=== PATIENT | female | born 1965 | race Caucasian/White ===

== ENCOUNTER 2016-12-14 17:00 | Inpatient (IN) | payer SELFPAY ==
[~2016-12-14] VITALS: Ht 170.2 cm; Wt 80.0 kg
[~2016-12-14 17:00] MED LIST: ALPR0.5T99 PO; HYDR10TA16 PO; MECL25CH OR; NORMOSOL R INJ 1,000 ML IV ONE; ONDANSETRON HCL 4 MG/2 ML VIAL IV PUSH ONE; PHENYLEPH/NS 1000 MCG/10 ML SYR IV ONE; PROPOFOL 200 MG/20 ML AMP IV ONE; SYNT75TA PO
[2016-12-14 17:02] VITALS: BP 109/65; PULSE 103; RESP 15; TEMP 98.7; O2SAT 98
--- NOTE | 2016-12-14 17:10 | PD ---
Physical Exam Date Seen by Provider: Dec 14, 2016 Time Seen by Provider: 17:08 Narrative 51 YOWF C/O LOW ABD PAIN FOR 1 MONTH WORSE 1 WEEK. 10/10 PAIN. FELT HOT. NAUSEA NO VOMITING OR DIARRHEA VS REVIEWED WAITING FOR BED PLACEMENT Data Data Last Documented VS Vital Signs Date Time Temp Pulse Resp B/P Pulse Ox O2 Delivery O2 Flow Rate FiO2 12/14/16 17:02 98.7 103 15 109/65 98 MDM Supervised Visit with BALJIT: Jeramy Daugherty Dec 14, 2016 17:10
[2016-12-14] MEDS ORDERED: SODIUM CHLORIDE 0.9% FLUSH 10 ML FLUSH IV FLUSH PRN ×2 (20:00→23:15)
[2016-12-14] MEDS ORDERED: MORPHINE SULFATE 4 MG/ML INJ IV PUSH ONE (20:00)
[2016-12-14] MEDS ORDERED: ONDANSETRON HCL 4 MG/2 ML VIAL IVP ONE (20:00)
--- NOTE | 2016-12-14 20:04 | PD ---
HPI Chief Complaint: Abdominal Pain Time Seen by Provider: 19:46 Travel History International Travel<30 days: No Contact w/Intl Traveler<30days: No Traveled to known affect area: No History of Present Illness HPI 51-year-old female here for evaluation of abdominal pain. Patient reports worsening abdominal pain over the last 2 days. Pain is diffuse, described as sharp/knifelike. She states it is difficult to breathe because of her pain. No chest pain. History of appendectomy in 2007. No other abdominal surgeries. No urinary symptoms. She feels nauseous but has not vomited. PFSH Past Medical History Arthritis: No Blood Disorders: No Anxiety: Yes Depression: No Cancer: Yes (THYROID) Cardiovascular Problems: No Chemotherapy: No Diabetes: No Diminished Hearing: No Endocrine: Yes Genitourinary: No Hepatitis: No Hiatal Hernia: No Immune Disorder: No Musculoskeletal: Yes (NECK AND BACK PAIN - UNDER PAIN MANAGEMENT) Neurologic: No Psychiatric: Yes Reproductive: No Respiratory: No Radiation Therapy: No Thyroid Disease: Yes Tetanus Vaccination: < 5 Years Influenza Vaccination: No ?: Unknown : 3 Para: 2 Miscarriage: 0 : 1 Ovarian Cysts: Yes (CANT RECALL WHICH OVARY) Tubal Ligation: Yes Past Surgical History Abdominal Surgery: Yes (APPENDECTOMY) AICD: No Appendectomy: Yes (TODAY) Arteriovenous Shunt: No Body Medical Devices: NONE Cardiac Surgery: No Ear Surgery: No Endocrine Surgery: Yes (THYROIDECTOMY) Eye Surgery: No Genitourinary Surgery: No Gynecologic Surgery: Yes (TUBAL LIGATION) Insulin Pump: No Joint Replacement: No Oral Surgery: No Pacemaker: No Thoracic Surgery: No Other Surgery: Yes Social History Alcohol Use: No Tobacco Use: Yes (1/2 PPD) Substance Use: No Allergies-Medications (Allergen,Severity, Reaction): Coded Allergies: No Known Allergies (Verified , 12/14/16) Reported Meds & Prescriptions Reported Meds & Active Scripts Active Reported Meclizine Hcl (Meclizine HCl) 25 Mg Chw 25 Mg OR HSPRN Synthroid (Levothyroxine Sodium) 75 Mcg Tab 75 Mcg PO DAILY Lortab 10/500 (Acetaminophen/Hydrocodone Bitart) 10 Mg/500 Mg Tab 1 Tab PO DIRECTED FOR PAIN Xanax (Alprazolam) 0.5 Mg Tab 0.5 Mg PO PRN Review of Systems Except as stated in HPI: all other systems reviewed are Neg Physical Exam Narrative GENERAL: Well-developed, well-nourished, mild distress secondary to pain. SKIN: Focused skin assessment warm/dry. HEAD: Atraumatic. Normocephalic. EYES: Pupils equal and round. No scleral icterus. No injection or drainage. ENT: Mucous membranes pink and moist. CARDIOVASCULAR: Regular rate and rhythm. No murmur appreciated. RESPIRATORY: No accessory muscle use. Clear to auscultation. Breath sounds equal bilaterally. GASTROINTESTINAL: Abdomen soft, nondistended. Moderate diffuse tenderness without peritoneal signs. Normal bowel sounds. MUSCULOSKELETAL: No obvious deformities. No clubbing. No cyanosis. No edema. NEUROLOGICAL: Awake and alert. No obvious cranial nerve deficits. Motor grossly within normal limits. Normal speech. PSYCHIATRIC: Appropriate mood and affect; insight and judgment normal. Data Data Last Documented VS Vital Signs Date Time Temp Pulse Resp B/P Pulse Ox O2 Delivery O2 Flow Rate FiO2 12/14/16 21:30 98.3 77 18 126/65 100 Room Air Orders Beta Hcg (Quant/Titer) (12/14/16 19:58) Complete Blood Count With Diff (12/14/16 19:58) Comprehensive Metabolic Panel (12/14/16 19:58) Lipase (12/14/16 19:58) Prothrombin Time / Inr (Pt) (12/14/16 19:58) Act Partial Throm Time (Ptt) (12/14/16 19:58) Urinalysis - C+S If Indicated (12/14/16 19:58) Iv Access Insert/Monitor (12/14/16 19:58) Ecg Monitoring (12/14/16 19:58) Oximetry (12/14/16 19:58) Morphine Inj (Morphine Inj) (12/14/16 20:00) Ondansetron Inj (Zofran Inj) (12/14/16 20:00) Sodium Chlor 0.9% 1000 Ml Inj (Ns 1000 M (12/14/16 19:58) Sodium Chloride 0.9% Flush (Ns Flush) (12/14/16 20:00) Electrocardiogram (12/14/16 19:58) Ckmb (Isoenzyme) Profile (12/14/16 19:58) Troponin I (12/14/16 19:58) Ct Abd/Pel W/O Iv Contrast (12/14/16 ) Piperacil-Tazo 4.5 Gm Premix (Zosyn 4.5 (12/14/16 21:45) Hydromorphone Pf Inj (Dilaudid Pf Inj) (12/14/16 22:00) Blood Culture (12/14/16 21:52) Lactic Acid Sepsis Protocol (12/14/16 21:52) Sodium Chlor 0.9% 1000 Ml Inj (Ns 1000 M (12/14/16 22:00) Admit Order (Ed Use Only) (12/14/16 21:56) Labs Laboratory Tests Test 12/14/16 12/14/16 18:51 20:04 Urine Color YELLOW Urine Turbidity HAZY Urine pH 5.5 Urine Specific [place] 1.017 Urine Protein TRACE mg/dL Urine Glucose (UA) NEG mg/dL Urine Ketones NEG mg/dL Urine Occult Blood NEG Urine Nitrite NEG Urine Bilirubin NEG Urine Urobilinogen LESS THAN 2.0 MG/DL Urine Leukocyte Esterase LARGE Urine RBC 4 /hpf Urine WBC 4 /hpf Urine Squamous Epithelial 6 /hpf Cells Urine Bacteria MOD /hpf Urine Hyaline Casts 2 /lpf Microscopic Urinalysis Comment CULTURE INDICATED White Blood Count 21.4 TH/MM3 Red Blood Count 3.78 MIL/MM3 Hemoglobin 9.0 GM/DL Hematocrit 29.6 % Mean Corpuscular Volume 78.2 FL Mean Corpuscular Hemoglobin 23.8 PG Mean Corpuscular Hemoglobin 30.5 % Concent Red Cell Distribution Width 18.8 % Platelet Count 392 TH/MM3 Mean Platelet Volume 9.6 FL Neutrophils (%) (Auto) 80.0 % Lymphocytes (%) (Auto) 11.0 % Monocytes (%) (Auto) 6.9 % Eosinophils (%) (Auto) 1.6 % Basophils (%) (Auto) 0.5 % Neutrophils # (Auto) 17.1 TH/MM3 Lymphocytes # (Auto) 2.4 TH/MM3 Monocytes # (Auto) 1.5 TH/MM3 Eosinophils # (Auto) 0.3 TH/MM3 Basophils # (Auto) 0.1 TH/MM3 CBC Comment DIFF FINAL Differential Comment Prothrombin Time 11.3 SEC Prothromb Time International 1.0 RATIO Ratio Activated Partial 31.3 SEC Thromboplast Time Sodium Level 135 MEQ/L Potassium Level 3.2 MEQ/L Chloride Level 98 MEQ/L Carbon Dioxide Level 29.5 MEQ/L Anion Gap 8 MEQ/L Blood Urea Nitrogen 23 MG/DL Creatinine 1.87 MG/DL Estimat Glomerular Filtration 29 ML/MIN Rate Random Glucose 88 MG/DL Calcium Level 11.0 MG/DL Total Bilirubin 0.5 MG/DL Aspartate Amino Transf 7 U/L (AST/SGOT) Alanine Aminotransferase 8 U/L (ALT/SGPT) Alkaline Phosphatase 87 U/L Total Creatine Kinase 25 U/L Troponin I LESS THAN 0.02 NG/ML Total Protein 7.0 GM/DL Albumin 3.0 GM/DL Lipase 40 U/L Human Chorionic Gonadotropin, LESS THAN 1 Quant MIU/ML MDM Medical Decision Making Medical Screen Exam Complete: Yes Emergency Medical Condition: Yes Medical Record Reviewed: Yes Differential Diagnosis Acute intra-abdominal infectious process, pancreatitis, diverticulitis, perf bowel, bowel obstruction, ACS, IBS Narrative Course Vital signs reviewed. CBC shows WBC 21.4, hemoglobin 9, hematocrit 29.6, platelets 392, neutrophils 80 %. CMP is remarkable for BUN 23, creatinine 1.87, GFR 29. Cardiac enzymes are negative. Lipase is 40. Beta hCG is negative. CT abdomen pelvis: CONCLUSION: 1. Pneumoperitoneum. This is associated abnormal mural thickening of the distal left colon and proximal sigmoid colon as well as a partial obstruction. Differential diagnosis includes a ruptured diverticulitis or colonic perforation from focal colitis or neoplasm. 2. Small pericardial effusion. Trace free fluid in the abdomen. Case discussed with on-call general surgeon Dr. Bartholomew. Patient will be started on Zosyn. He will present to the emergency department to evaluate the patient. The patient will be admitted to his service. Patient made aware of all findings and plan. Critical Care Narrative Aggregate critical care time was 35 minutes. Time to perform other separately billable procedures was not included in the critical care time. My time did not include minutes spent treating any other patients simultaneously or on activities that did not directly contribute to the patient's treatment. The services I provided to this patient were to treat and/or prevent clinically significant deterioration that could result in: Septic shock, , permanent disability, worsening clinical condition I provided critical care services requiring my management, as noted below: Chart data review, documentation time, medication orders and management, vital sign assessments/reviewing monitor data, ordering and reviewing lab tests, ordering and interpreting/reviewing x-rays and diagnostic studies, care of the patient and discussion of the patient with the admitting physicians. Diagnosis Primary Impression: Pneumoperitoneum Additional Impression: Sepsis Qualified Code: A41.9 - Sepsis, due to unspecified organism Admitting Information Admitting Physician Requests: Admit Anthony Zelaya MD Dec 14, 2016 20:04
[2016-12-14 20:14] VITALS: O2SAT 100
[2016-12-14] MEDS: SODIUM CHLOR 0.9% 1000 ML INJ 1,000 ML IV SCH ×2 (20:14→22:13)
[2016-12-14 20:15] LABS: AUTOMATED NEUTROPHIL # 17.1 TH/MM3 (1.8-7.7); BASOPHIL # 0.1 TH/MM3 (0-0.2); BASOPHIL % 0.5 % (0.0-2.0); EOSINOPHIL # 0.3 TH/MM3 (0-0.4); EOSINOPHIL % 1.6 % (0.0-4.0); HEMATOCRIT 29.6 % (35.0-46.0); HEMO FLAGS DIFF FINAL; LYMPHOCYTE # 2.4 TH/MM3 (1.0-4.8); MEAN CELL VOLUME 78.2 FL (80.0-100.0); MEAN CORPUSCULAR HEMOGLOBIN 23.8 PG (27.0-34.0); MEAN CORPUSCULAR HGB CONC 30.5 % (32.0-36.0); MONO % 6.9 % (0.0-8.0); PLATELET COUNT 392 TH/MM3 (150-450); RED BLOOD COUNT 3.78 MIL/MM3 (4.00-5.30); RED CELL DISTRIBUTION WIDTH 18.8 % (11.6-17.2); WHITE BLOOD COUNT 21.4 TH/MM3 (4.0-11.0)
[2016-12-14 20:29] LABS: APTT (PATIENT) 31.3 SEC (24.3-30.1); PROTHROMBIN TIME - PATIENT 11.3 SEC (9.8-11.6)
[2016-12-14 20:34] LABS: ANION GAP 8 MEQ/L (5-15); BICARBONATE 29.5 MEQ/L (21.0-32.0); BLOOD UREA NITROGEN 23 MG/DL (7-18); CHLORIDE 98 MEQ/L (98-107); GLOMERULAR FILTRATION RATE 29 ML/MIN (>89); POTASSIUM 3.2 MEQ/L (3.5-5.1); SODIUM (NA) 135 MEQ/L (136-145)
[2016-12-14 20:35] LABS: ALT (GPT) 8 U/L (10-53); AST (GOT) 7 U/L (15-37)
[2016-12-14 20:39] LABS: ALKALINE PHOSPHATASE 87 U/L (45-117); BETA HCG QUANT LESS THAN 1 MIU/ML (0-5); TOTAL BILIRUBIN ADULT 0.5 MG/DL (0.2-1.0)
[2016-12-14 20:40] LABS: CREATINE KINASE 25 U/L (26-192)
[2016-12-14 21:30] VITALS: BP 126/65; PULSE 77; RESP 18; TEMP 98.3; O2SAT 100
[2016-12-14] MEDS ORDERED: PIPERACIL-TAZO 4.5 GM PREMIX 100 ML IV ONE (21:45)
--- NOTE | 2016-12-14 21:48 | RADRPT ---
EXAM DATE/TIME: 12/14/2016 21:21 [facility] COMPARISON: No previous studies available for comparison. INDICATIONS : Adbominal pain for one month. ORAL CONTRAST: No oral contrast ingested. RADIATION DOSE: 12.88 CTDIvol (mGy) MEDICAL HISTORY : None SURGICAL HISTORY : Appendectomy. Tubal ligation. ENCOUNTER: Initial ACUITY: 1 month PAIN SCALE: 10/10 LOCATION: Bilateral lower quadrant TECHNIQUE: Volumetric scanning of the abdomen and pelvis was performed. Using automated exposure control and ad justment of the mA and/or kV according to patient size, radiation dose was kept as low as reasonably achievable to obtain optimal diagnostic quality images. DICOM format image data is available electro nically for review and comparison. FINDINGS: There is dependent atelectasis in the lungs. Small pericardial effusion. There is free intraperitoneal air within the abdomen and pelvis. There is abnormal mural thickening o f a segment of distal left colon extending into the proximal sigmoid colon. There is a probable parti al obstruction at this location with a mildly dilated colon proximal to this with some mild constipat ion. This could represent a ruptured diverticulitis or colitis. Cannot exclude a colonic mass. No focal lesion in the liver, spleen, adrenals, kidneys or pancreas. Trace free fluid present. CONCLUSION: 1. Pneumoperitoneum. This is associated abnormal mural thickening of the distal left colon and proxim al sigmoid colon as well as a partial obstruction. Differential diagnosis includes a ruptured diverti culitis or colonic perforation from focal colitis or neoplasm. 2. Small pericardial effusion. Trace free fluid in the abdomen. Jeramy Steel MD on December 14, 2016 at 21:42 Board Certified Radiologist. This report was verified electronically.
[2016-12-14] MEDS ORDERED: SODIUM CHLOR 0.9% 1000 ML INJ 1,000 ML IV ONE (22:00)
[2016-12-14] MEDS ORDERED: HYDROmorphone HCL PF 1 MG/ML VIAL IV PUSH ONE (22:00)
[2016-12-14 22:08] VITALS: BP 113/65; PULSE 80; RESP 18; O2SAT 100
[2016-12-14 22:15] LABS: BACTERIA, URINE MOD /hpf; BLOOD, URINE NEG (NEG); COMMENT (UR) CULTURE INDICATED; CULTURE IF INDICATED CULTURE INDICATED; GLUCOSE,URINE NEG (NEG); HYALINE CAST, URINE 2 /lpf (RARE); KETONE, URINE NEG (NEG); NITRITE,URINE NEG (NEG); PH, URINE 5.5 (5.0-8.5); SQUAMOUS EPITHELIAL CELL URINE 6 /hpf (0-5); URINE COLOR YELLOW (YELLW/STRAW)
[2016-12-14] MEDS ORDERED: SODIUM CHLOR 0.9% 1000 ML INJ 1,000 ML IV SCH (23:08)
[2016-12-14 23:16] VITALS: BP 96/54; PULSE 79; RESP 18; TEMP 98.1; O2SAT 100
[2016-12-14] MEDS ORDERED: GELFOAM SIZE 100 ONE (23:17)
[2016-12-14] MEDS ORDERED: ceFAZolin INJ 1,000 MG VIAL ONE (23:17)
[2016-12-14] MEDS ORDERED: BUPIVACAINE/EPINEPHRINE 0.5% 50 ML VIAL ONE (23:19)
[2016-12-14 23:20] VITALS: BP 101/57
[2016-12-14] MEDS ORDERED: fentaNYL CITRATE 250 MCG/5 ML AMP ONE (23:25)
--- NOTE | 2016-12-14 23:43 | MH ---
cc: JOLANTA BARTHOLOMEW DATE OF ADMISSION 12/14/2016 REASON FOR ADMISSION Free air sepsis. HISTORY This is a 51-year-old female who has had a few days' history of a severe abdominal pain. She came in the emergency room, CT scan was done showing massive free air with an elevated white count of 21,000. Surgery was called for evaluation and admission and treatment. She states she has chronic constipation and chronic back pain and chronic abdominal pain. She has been taking a lot ibuprofen and the pain just gets progressively worse. It was in the midepigastric region under her ribs, mainly on the right side and then it progressed to her entire abdomen. PAST MEDICAL HISTORY Significant for thyroid cancer requiring a thyroidectomy. She has had chronic abdominal pain and constipation related to her medications that she takes for her chronic back pain. She has had an appendectomy about 9 years ago. Had some skin cancers removed from her face and her arm. No neurologic or cardiovascular, respiratory issues. GI complaints as above. She had a tubal ligation and one time had ovarian cyst. Last menstrual period was last . PHYSICAL EXAMINATION GENERAL: She is holding her abdomen. She has a difficult time moving around. NECK: She has a surgical scar on her neck from a thyroidectomy. The neck is otherwise supple. CHEST: Clear. HEART: Regular rate, slightly tachycardiac. ABDOMEN: Slightly distended, exquisitely tender throughout. EXTREMITIES: She was up in the stretcher, she had to go urinate. NEUROLOGIC: She is alert, oriented but obviously is uncomfortable. LABORATORY DATA She had a white count of 21,000, H&H of 9 and 29. Her platelet count of 329. Chemistry shows potassium 3.2, creatinine 1.8, calcium 11, albumin of 3. Beta hCG is negative. Coags a PTT is 31. Urinalysis shows some leukocyte esterase and some blood. IMAGING STUDIES CT scan read by the radiologist, I reviewed it. She has got massive free air. There is some thickening in the colon. She looks like she has a fair amount of stool in her colon. ASSESSMENT A 51-year-old female with free air. She is taking a fair amount ibuprofen for her chronic back pain and just generalized pain that she has. However, she has these changes on the CT scan, possibly diverticulosis, diverticulitis. PLAN Plan at this time, she will need to go right to the operating room. Explained to her we will determine if this is free air from a perforated ulcer. Her history certainly favors that with the pain starting in the mid epigastric region and her ibuprofen use but the radiologic findings suggest possible colon source. Will proceed to the operating room and determine the source. If it is an ulcer of course we will just primarily repair that which was explained to the patient. If it is her colon she will require a colostomy which she appears to understand. Jolanta Bartholomew MD JDB/EO /11:16 PM /11:25 PM
[2016-12-15] VITALS (12 sets, daily range): BP systolic 96–112; BP diastolic 52–59; PULSE 82–99; RESP 11–16; TEMP 97.9–98.4; O2SAT 95–99
[2016-12-15] MEDS ORDERED: FLUCONAZOLE 400 MG PREMIX BAG 200 ML ONE (00:29)
[2016-12-15 00:57] LABS: BLOOD GAS BASE EXCESS -0.2 mmol/L (-2-2); BLOOD GAS CARBOXYHEMOGLOBIN 2.5 % (0-4); BLOOD GAS HCO3 23 mmol/L (22-26); BLOOD GAS METHEMOGLOBIN 1.5 % (0-2); BLOOD GAS O2 HGB SATURATION 95 % (90-100); BLOOD GAS OXYGEN CONTENT 15.1 Vol % (12.0-20.0); BLOOD GAS PCO2 34 mmHg (38-42); BLOOD GAS PO2 209 mmHg (61-120); CRITICAL VALUE NO; TEMP CORR TO 98.6
[2016-12-15 00:58] LABS: DRAW SITE OR GAS; FIO2 60 %; OXYGEN DEVICE OR GAS; STAT YES
[2016-12-15] MEDS ORDERED: DO NOT ADM ANY ANTICOAGULANT DRUGS PRN (01:00)
[2016-12-15] MEDS: LACTATED RINGER'S 1000 ML INJ 1,000 ML IV SCH ×3 (01:25→20:36)
[2016-12-15] MEDS ORDERED: ENOXAPARIN SODIUM 30 MG/0.3 ML SYRINGE SQ SCH (01:30)
[2016-12-15] MEDS ORDERED: Post-op Orders (for Pharmacy) MISC XX ONE (01:30)
[2016-12-15] MEDS ORDERED: NALOXONE HCL 0.4 MG/ML AMP IV PRN ×2 (01:30)
[2016-12-15] MEDS: ACETAMINOPHEN 1000 MG/100 ML VIAL IV SCH ×4 (02:00→20:19)
[2016-12-15] MEDS: LEVOFLOXACIN 750 MG PREMIX INJ 150 ML IV SCH (02:00)
[2016-12-15] MEDS: HYDROmorphone HCL PCA 6 MG/30 ML IV SCH ×2 (02:47→13:46)
[2016-12-15] MEDS: metroNIDAZOLE 500 MG INJ 100 ML IV SCH ×3 (04:57→17:35)
[2016-12-15] MEDS: PCA - TOTAL MG DILAUDID DELIVERED PER SHIFT OTHER SCH ×3 (06:00→22:00)
--- NOTE | 2016-12-15 08:11 | HHI.PR ---
Subjective Subjective Notes DAILY PROGRESS NOTE FOR SURGICAL ATTENDING, DR. JOLANTA BARTHOLOMEW Patient feels comfortable She says her throat hurts more than her abdomen after major surgery Objective Vitals/I&O Vital Signs Date Time Temp Pulse Resp B/P Pulse Ox O2 Delivery O2 Flow Rate FiO2 12/15/16 06:00 84 12/15/16 03:00 Nasal Cannula 2.00 12/15/16 02:47 18 12/15/16 02:38 98.8 101/62 96 121/68 Labs Laboratory Tests Test 12/14/16 12/14/16 12/14/16 12/14/16 18:51 20:04 22:15 23:07 Urine Color YELLOW Urine Turbidity HAZY Urine pH 5.5 Urine Specific [place] 1.017 Urine Protein TRACE Urine Glucose (UA) NEG Urine Ketones NEG Urine Occult Blood NEG Urine Nitrite NEG Urine Bilirubin NEG Urine Urobilinogen LESS THAN 2.0 Urine Leukocyte Esterase LARGE Urine RBC 4 Urine WBC 4 Urine Squamous Epithelial 6 Cells Urine Bacteria MOD Urine Hyaline Casts 2 Microscopic Urinalysis Comment CULTURE INDICATED White Blood Count 21.4 Red Blood Count 3.78 Hemoglobin 9.0 Hematocrit 29.6 Mean Corpuscular Volume 78.2 Mean Corpuscular Hemoglobin 23.8 Mean Corpuscular Hemoglobin 30.5 Concent Red Cell Distribution Width 18.8 Platelet Count 392 Mean Platelet Volume 9.6 Neutrophils (%) (Auto) 80.0 Lymphocytes (%) (Auto) 11.0 Monocytes (%) (Auto) 6.9 Eosinophils (%) (Auto) 1.6 Basophils (%) (Auto) 0.5 Neutrophils # (Auto) 17.1 Lymphocytes # (Auto) 2.4 Monocytes # (Auto) 1.5 Eosinophils # (Auto) 0.3 Basophils # (Auto) 0.1 CBC Comment DIFF FINAL Differential Comment Prothrombin Time 11.3 Prothromb Time International 1.0 Ratio Activated Partial 31.3 Thromboplast Time Sodium Level 135 Potassium Level 3.2 Chloride Level 98 Carbon Dioxide Level 29.5 Anion Gap 8 Blood Urea Nitrogen 23 Creatinine 1.87 Estimat Glomerular Filtration 29 Rate Random Glucose 88 Calcium Level 11.0 Total Bilirubin 0.5 Aspartate Amino Transf 7 (AST/SGOT) Alanine Aminotransferase 8 (ALT/SGPT) Alkaline Phosphatase 87 Total Creatine Kinase 25 Troponin I LESS THAN 0.02 Total Protein 7.0 Albumin 3.0 Lipase 40 Human Chorionic Gonadotropin, LESS THAN 1 Quant Lactic Acid Level 0.8 Blood Type O POSITIVE Antibody Screen NEGATIVE Blood Bank Comment Test 12/15/16 12/15/16 00:38 04:03 Blood Gas Puncture Site OR GAS Blood Gas Patient Temperature 98.6 Blood Gas HCO3 23 Blood Gas Base Excess -0.2 Blood Gas Oxygen Saturation 95 Arterial Blood pH 7.45 Arterial Blood Partial 34 Pressure CO2 Arterial Blood Partial 209 Pressure O2 Arterial Blood Oxygen Content 15.1 Arterial Blood 2.5 Carboxyhemoglobin Arterial Blood Methemoglobin 1.5 Blood Gas Hemoglobin 11.0 Oxygen Delivery Device OR GAS Blood Gas Inspired Oxygen 60 Nasal Screen MRSA (PCR) MRSA NOT DETECTED Date/Time Procedure Status Source Growth 12/14/16 22:15 Aerobic Blood Culture Received Blood Peripheral Pending 12/14/16 22:15 Anaerobic Blood Culture Received Blood Peripheral Pending 12/14/16 18:51 Urine Culture Received Urine Clean Catch Pending Radiology Last Impressions Abdomen/Pelvis CT 12/14/16 0000 Signed Impressions: Service Date/Time: November 21:21 - CONCLUSION: 1. Pneumoperitoneum. This is associated abnormal mural thickening of the distal left colon and proximal sigmoid colon as well as a partial obstruction. Differential diagnosis includes a ruptured diverticulitis or colonic perforation from focal colitis or neoplasm. 2. Small pericardial effusion. Trace free fluid in the abdomen. Jolanta Steel MD Cardiovascular: Regular Lungs: Clear Abdomen: Post-op tenderness Extremities: SCD's on Narrative Exam Ostomy pink perfused Dressing dry Wound Wound : Wound Location: Abdomen Appearance: Clean & Dry Dressing: Dry A/P Problem List: (1) Acute abdomen (2) Pneumoperitoneum (3) Sepsis (4) Dehydration (5) Hypercalcemia (6) Chronic constipation (7) History of chronic constipation (8) Chronic back pain greater than 3 months duration (9) Hypokalemia (10) Status post colon resection (11) Status post [place] procedure Assessment and Plan 51-year-old female who has chronic constipation secondary to narcotic use for chronic back pain developed a sizable Sterkel ulcer. Underwent a distal transverse splenic flexure descending colon resection with colostomy and Grimaldo's Doing fairly well complaining of sore throat more than abdominal discomfort this time Today we'll try to mobilize Okay for some by mouth Adjust pain medication Continuing IV antibiotics Follow-up hypercalcemia and hypokalemia Blood work still pending Attending Statement NOTE FOR SURGICAL ATTENDING, DR. JOLANTA BARTHOLOMEW I attest that I had a [id number] encounter with the patient on the same day, and personally performed and documented my assessment and findings in the medical record. The following services were provided during this hospital visit: Chart data review, vital sign assessments/reviewing monitor data Review of consultations notes if present. Medication orders/review and/or management Ordering and/or reviewing lab tests Ordering and/or interpreting/reviewing x-rays and/or diagnostic studies Care of the patient and discussion of the patient with the care team Documentation time To help prompt me to consider important information that might be impacting today's encounter and assessment, information from prior notes written by myself or my colleagues may have been "brought forward/copy and pasted" into today's note. Problem Qualifiers (1) Sepsis: Qualified Code: A41.9 - Sepsis, due to unspecified organism Jolanta Bartholomew MD Dec 15, 2016 08:11
[2016-12-15] MEDS: PANTOPRAZOLE SODIUM 40 MG VIAL IV SCH (09:00)
[2016-12-15] MEDS: SODIUM CHLORIDE 0.9% FLUSH 10 ML FLUSH IV FLUSH SCH ×2 (09:00→20:20)
[2016-12-15] MEDS ORDERED: HYDR-3583 PO (09:46)
[2016-12-15] MEDS ORDERED: ALPR.5 PO (09:46)
[2016-12-15] MEDS ORDERED: LEVO.075 PO (09:46)
[2016-12-15] MEDS ORDERED: MECL1CHW PO (09:46)
[2016-12-15] MEDS: BENZOCAINE 6 MG/MENTHOL 10 MG LOZENGE BUCCAL PRN ×2 (09:53→20:20)
[2016-12-15] MEDS: ALPRAZolam 0.5 MG TAB PO SCH ×5 (10:54→23:05)
[2016-12-15] MEDS ORDERED: LEVOTHYROXINE SODIUM 75 MCG TAB PO SCH (11:00)
[2016-12-15] MEDS: LEVOTHYROXINE SODIUM 75 MCG TAB PO SCH (11:52)
[2016-12-15] MEDS ORDERED: ALPRAZolam 0.5 MG TAB PO SCH (12:00)
--- NOTE | 2016-12-15 12:43 | MP ---
cc: JOLANTA BARTHOLOMEW M.D. DATE OF SURGERY 12/15/2016 PREOPERATIVE DIAGNOSIS Free air. POSTOPERATIVE DIAGNOSIS Perforated splenic flexure from a stercoral ulcer. PROCEDURE Exploratory laparotomy with resection of distal transverse colon, splenic flexure and descending colon. colonic on-table lavage colostomy formation Gal[place] procedure ANESTHESIA General SURGEON Dr. Bartholomew INDICATIONS This is a 51-year-old female who has had chronic constipation for sometime. She takes narcotics for her back pain. She was taking a lot of ibuprofen and having abdominal pain. She came in to the emergency room, was found to have free air, I was not sure if there was an ulcer or diverticulitis. Intraoperatively it was found that she had a fairly packed colon with stool with a stercoral ulcer at the splenic flexure with a defect approximately 3 cm in the colon. There is minimal spillage. PROCEDURE The patient taken to the operating room, placed in the supine position. Just after anesthesia, her abdomen was prepped with Betadine. We first made an incision just above to the right of the umbilicus. We enter the abdomen. Some air was noted. I explored the abdomen. No duodenal ulcer or gastric ulcer. Some purulent material and a fecal smell can be seen in the left colic gutter. The white line of Toldt was taken down. It is noted that her transverse colon, splenic flexure and most of her descending colon was packed full a large stool balls. The one at the splenic flexure has eroded through the wall of the colon consistent with a Stercoral ulcer. We take a white line of Toldt down, take the splenic flexure down and then get to just to the left of the middle colic vessels. The GI stapling was then fired. We got down to the distal descending colon and transected this. The mesentery was then taken down with a harmonic scalpel and the specimen is labeled with a stitch at the proximal edge for pathological evaluation. We then irrigate copiously. We re-explored the abdomen and no gross abnormality is seen. The small bowel is all normal-appearing. Some fibrous exudate is removed. After irrigating, we then opened up the proximal staple line and then milk out very firm stool balls from the distal ascending colon to the transverse colon into a large bucket and this is passed off the field to decompress the colon of the majority of the impacted stool. With this done, we then stapled the edge and amputated approximately two more centimeters of colon. We then irrigate copiously. The skin edges were cleaned up. We then bring out an ostomy in the somewhat mid quadrant area, a little bit higher than normal to accommodate where the transverse colon lays nicely. A skin incision is made and a defect is made the fascia and the rectus muscle to accommodate the distended colon. We then close the midline fascia with #1 PDS looped. After this was done, we then irrigate the subcutaneous tissues and closed the skin with a skin stapling device. It is noted that we did put two silk sutures on the distal staple line for identification in the future. The ostomy was then matured with 3-0 Vicryl suture to the skin and fascia. Sterile bandage is applied. Ostomy appliance applied. The patient had no immediate postop complications. MD FABIANA Aguayo/JEFFREY /1:19 AM /12:29 PM [facility]
--- NOTE | 2016-12-15 13:06 | PD.WCN.NOT ---
Wound Consult Description: Consult for NEW OSTOMY TEACHING per Dr Bartholomew Communicated with: Patient Patients daughters Recommendation: Read booklet provided in the colostomy kit given Additional Information: Patient seen on 3 for Ostomy teaching. Ostomy Type: Colostomy Surgeon: Jeramy Bartholomew MD Date of Surgery: Dec 15, 2016 Complete: Starter kit Educated patient on: Reading the booklet within the Ostomy kit left at bedside for when she is without company Additional information Patient seen on 3 for Ostomy teaching. Patient had her daughters at bedside and refused teaching at this time saying "I have too much on my mind and cannot handle anymore information right now". The patient goes on to say that its all her fault that this happened and became very tearful. Patient asks that I leave the kit on the table and place the booklet back into the kit and she will read it later. Patient states that she has no insurance and no way to obtain her supplies. Spoke with patients nurse regarding the importance of teaching before patient goes home and rewriter will follow up with patient on Sunday. Along with patients emotional status and family at bedside, the patient requested that rewriter come back when family is not present. Lluvia Dallas Dec 15, 2016 13:06 Lluvia Dallas Dec 15, 2016 13:06
[2016-12-15] MEDS: NICOTINE 14 MG/24 HR PATCH T-DERMAL SCH (14:21)
--- NOTE | 2016-12-15 14:37 | EKG ---
Date Performed: 12/14/2016 Time Performed: 20:18:36 PTAGE: 51 years EKG: JUNCTIONAL RHYTHM NONSPECIFIC T-WAVE ABNORMALITY ABNORMAL ECG NO PREVIOUS TRACING DOCTOR: Reggie Erwin Interpretating Date/Time 12/15/2016 14:34:28
[2016-12-15] MEDS: ENOXAPARIN SODIUM 30 MG/0.3 ML SYRINGE SQ SCH (23:05)
[2016-12-16] VITALS (12 sets, daily range): BP systolic 96–146; BP diastolic 52–74; PULSE 86–101; RESP 14–24; TEMP 98.5–99.9; O2SAT 90–98
[2016-12-16] MEDS: LEVOFLOXACIN 750 MG PREMIX INJ 150 ML IV SCH (02:15)
[2016-12-16] MEDS: ALPRAZolam 0.5 MG TAB PO SCH ×8 (02:16→23:18)
[2016-12-16] MEDS: LEVOTHYROXINE SODIUM 75 MCG TAB PO SCH (04:56)
[2016-12-16] MEDS: LACTATED RINGER'S 1000 ML INJ 1,000 ML IV SCH ×2 (04:57→17:12)
[2016-12-16 05:52] LABS: BICARBONATE 26.4 MEQ/L (21.0-32.0)
[2016-12-16] MEDS: PCA - TOTAL MG DILAUDID DELIVERED PER SHIFT OTHER SCH ×3 (06:00→20:28)
[2016-12-16 06:07] LABS: AUTOMATED NEUTROPHIL # 15.6 TH/MM3 (1.8-7.7); BASOPHIL # 0.1 TH/MM3 (0-0.2); BASOPHIL % 0.3 % (0.0-2.0); EOSINOPHIL # 0.5 TH/MM3 (0-0.4); EOSINOPHIL % 2.8 % (0.0-4.0); HEMO FLAGS DIFF FINAL; LYMPH % 7.5 % (9.0-44.0); LYMPHOCYTE # 1.4 TH/MM3 (1.0-4.8); MEAN CELL VOLUME 79.8 FL (80.0-100.0); MEAN CORPUSCULAR HEMOGLOBIN 24.5 PG (27.0-34.0); MEAN CORPUSCULAR HGB CONC 30.7 % (32.0-36.0); MONO % 7.1 % (0.0-8.0); NEUT % 82.3 % (16.0-70.0); PLATELET COUNT 395 TH/MM3 (150-450); RED BLOOD COUNT 3.89 MIL/MM3 (4.00-5.30); RED CELL DISTRIBUTION WIDTH 18.8 % (11.6-17.2); WHITE BLOOD COUNT 18.9 TH/MM3 (4.0-11.0)
[2016-12-16] MEDS: HYDROmorphone HCL PCA 6 MG/30 ML IV SCH ×2 (06:40→20:32)
[2016-12-16] MEDS: REMOVE OLD PATCH T-DERMAL SCH (08:35)
[2016-12-16] MEDS: SODIUM CHLORIDE 0.9% FLUSH 10 ML FLUSH IV FLUSH SCH ×2 (08:36→20:27)
[2016-12-16] MEDS: PANTOPRAZOLE SODIUM 40 MG VIAL IV SCH (08:37)
[2016-12-16] MEDS: NICOTINE 14 MG/24 HR PATCH T-DERMAL SCH (08:37)
[2016-12-16] MEDS: POTASSIUM CHLOR 20 MEQ PREMIX 100 ML IV SCH ×2 (13:59→15:15)
--- NOTE | 2016-12-16 20:46 | HHI.PR ---
Subjective Subjective Notes Laying in bed; does not want to have higginbotham removed due to history of frequency. Objective Vitals/I&O Vital Signs Date Time Temp Pulse Resp B/P Pulse Ox O2 Delivery O2 Flow Rate FiO2 12/16/16 20:32 18 12/16/16 20:00 98.5 89 146/74 97 12/16/16 16:28 Room Air 12/16/16 11:38 21 12/15/16 07:00 2.00 Labs Laboratory Tests Test 12/16/16 05:25 White Blood Count 18.9 Red Blood Count 3.89 Hemoglobin 9.5 Hematocrit 31.0 Mean Corpuscular Volume 79.8 Mean Corpuscular Hemoglobin 24.5 Mean Corpuscular Hemoglobin 30.7 Concent Red Cell Distribution Width 18.8 Platelet Count 395 Mean Platelet Volume 10.2 Neutrophils (%) (Auto) 82.3 Lymphocytes (%) (Auto) 7.5 Monocytes (%) (Auto) 7.1 Eosinophils (%) (Auto) 2.8 Basophils (%) (Auto) 0.3 Neutrophils # (Auto) 15.6 Lymphocytes # (Auto) 1.4 Monocytes # (Auto) 1.3 Eosinophils # (Auto) 0.5 Basophils # (Auto) 0.1 CBC Comment DIFF FINAL Differential Comment Sodium Level 136 Potassium Level 3.0 Chloride Level 102 Carbon Dioxide Level 26.4 Anion Gap 8 Blood Urea Nitrogen 16 Creatinine 1.22 Estimat Glomerular Filtration 47 Rate Random Glucose 92 Calcium Level 8.6 Date/Time Procedure Status Source Growth 12/14/16 22:15 Aerobic Blood Culture - Preliminary Resulted Blood Peripheral NO GROWTH IN 2 DAYS 12/14/16 22:15 Anaerobic Blood Culture - Preliminary Resulted Blood Peripheral NO GROWTH IN 2 DAYS 12/14/16 18:51 Urine Culture - Final Complete Urine Clean Catch Escherichia Coli Radiology Last Impressions Abdomen/Pelvis CT 12/14/16 0000 Signed Impressions: Service Date/Time: November 21:21 - CONCLUSION: 1. Pneumoperitoneum. This is associated abnormal mural thickening of the distal left colon and proximal sigmoid colon as well as a partial obstruction. Differential diagnosis includes a ruptured diverticulitis or colonic perforation from focal colitis or neoplasm. 2. Small pericardial effusion. Trace free fluid in the abdomen. Jeramy Steel MD Abdomen: Non-distended, Non-tender Narrative Exam Colostomy with no output yet; pink and viable A/P Problem List: (1) Acute abdomen (2) Pneumoperitoneum (3) Sepsis (4) Dehydration (5) Hypercalcemia (6) Chronic constipation (7) History of chronic constipation (8) Chronic back pain greater than 3 months duration (9) Hypokalemia (10) Status post colon resection (11) Status post Galina procedure Assessment and Plan POD #1 End colostomy with Grimaldo procedure Patient refuses to have higginbotham removed, even after explaining risk of UTI and offering to start her on an antispasmodic such as ditropan, which she has never tried. Poor inspiratory effort (500ml on IS) Explained need to do this to avoid atelectasis and pneumonia Stable from surgical standpoint Transfer to floor Problem Qualifiers (1) Sepsis: Qualified Code: A41.9 - Sepsis, due to unspecified organism Sal Overton MD Dec 16, 2016 20:46
[2016-12-16] MEDS ORDERED: POTASSIUM CHLOR 20 MEQ PREMIX 100 ML IV ONE (21:00)
[2016-12-16] MEDS: ENOXAPARIN SODIUM 30 MG/0.3 ML SYRINGE SQ SCH (23:18)
[2016-12-17] MEDS: ALPRAZolam 0.5 MG TAB PO SCH ×7 (02:42→23:41)
[2016-12-17] MEDS: LEVOFLOXACIN 750 MG PREMIX INJ 150 ML IV SCH (02:43)
[2016-12-17] MEDS: LACTATED RINGER'S 1000 ML INJ 1,000 ML IV SCH ×3 (02:49→21:14)
[2016-12-17 04:00] VITALS: BP 125/70; PULSE 90; RESP 17; TEMP 98.9; O2SAT 98
[2016-12-17 04:44] LABS: BICARBONATE 22.1 MEQ/L (21.0-32.0); POTASSIUM 3.6 MEQ/L (3.5-5.1)
[2016-12-17 05:12] LABS: HEMATOCRIT 30.9 % (35.0-46.0); MEAN CELL VOLUME 79.6 FL (80.0-100.0); MEAN CORPUSCULAR HEMOGLOBIN 23.9 PG (27.0-34.0); PLATELET COUNT 434 TH/MM3 (150-450); RED BLOOD COUNT 3.89 MIL/MM3 (4.00-5.30); RED CELL DISTRIBUTION WIDTH 18.7 % (11.6-17.2); REVIEW FLAG FINAL; WHITE BLOOD COUNT 16.4 TH/MM3 (4.0-11.0)
[2016-12-17] MEDS: PCA - TOTAL MG DILAUDID DELIVERED PER SHIFT OTHER SCH ×3 (05:22→21:14)
[2016-12-17] MEDS: LEVOTHYROXINE SODIUM 75 MCG TAB PO SCH (05:24)
[2016-12-17 07:48] VITALS: BP 126/68; PULSE 90; RESP 17; TEMP 98.6; O2SAT 92
[2016-12-17 08:00] VITALS: BP 126/68; PULSE 90; RESP 17; TEMP 98.6; O2SAT 92
[2016-12-17] MEDS: NICOTINE 14 MG/24 HR PATCH T-DERMAL SCH (09:00)
[2016-12-17] MEDS: SODIUM CHLORIDE 0.9% FLUSH 10 ML FLUSH IV FLUSH SCH ×2 (09:00→21:15)
[2016-12-17] MEDS: REMOVE OLD PATCH T-DERMAL SCH (09:00)
[2016-12-17 12:00] VITALS: BP 136/72; PULSE 94; RESP 18; TEMP 97.2; O2SAT 94
--- NOTE | 2016-12-17 13:13 | HHI.PR ---
Subjective Subjective Notes doing well no nausea Objective Vitals/I&O Vital Signs Date Time Temp Pulse Resp B/P (MAP) Pulse Ox O2 Delivery O2 Flow Rate FiO2 12/17/16 12:00 97.2 94 18 136/72 (93) 94 12/16/16 16:28 Room Air 12/16/16 11:38 21 12/15/16 07:00 2.00 Labs Laboratory Tests Test 12/17/16 03:17 White Blood Count 16.4 Red Blood Count 3.89 Hemoglobin 9.3 Hematocrit 30.9 Mean Corpuscular Volume 79.6 Mean Corpuscular Hemoglobin 23.9 Mean Corpuscular Hemoglobin Concent 30.0 Red Cell Distribution Width 18.7 Platelet Count 434 Mean Platelet Volume 9.9 Blood Urea Nitrogen 10 Creatinine 1.02 Random Glucose 70 Calcium Level 8.9 Sodium Level 138 Potassium Level 3.6 Chloride Level 105 Carbon Dioxide Level 22.1 Anion Gap 11 Estimat Glomerular Filtration Rate 57 Date/Time Source Procedure Growth Status 12/14/16 22:15 Blood Peripheral Aerobic Blood Culture - Preliminary NO GROWTH IN 3 DAYS Resulted 12/14/16 22:15 Blood Peripheral Anaerobic Blood Culture - Preliminary NO GROWTH IN 3 DAYS Resulted 12/14/16 18:51 Urine Clean Catch Urine Culture - Final Escherichia Coli Complete Radiology Last Impressions Abdomen/Pelvis CT 12/14/16 0000 Signed Impressions: Service Date/Time: November 21:21 - CONCLUSION: 1. Pneumoperitoneum. This is associated abnormal mural thickening of the distal left colon and proximal sigmoid colon as well as a partial obstruction. Differential diagnosis includes a ruptured diverticulitis or colonic perforation from focal colitis or neoplasm. 2. Small pericardial effusion. Trace free fluid in the abdomen. Jeramy Steel MD Cardiovascular: Regular Lungs: Clear Abdomen: Post-op tenderness Extremities: SCD's on Narrative Exam Ostomy pink perfused Dressing dry A/P Problem List: (1) Acute abdomen (2) Pneumoperitoneum (3) Sepsis (4) Dehydration (5) Hypercalcemia (6) Chronic constipation (7) History of chronic constipation (8) Chronic back pain greater than 3 months duration (9) Hypokalemia (10) Status post colon resection (11) Status post Galina procedure Assessment and Plan 51-year-old female who has chronic constipation secondary to narcotic use for chronic back pain developed a sizable Sterkel ulcer. Underwent a distal transverse splenic flexure descending colon resection with colostomy and Grimaldo's Doing fairly well complaining of sore throat more than abdominal discomfort this time Today we'll try to mobilize Okay for some by mouth Adjust pain medication Continuing IV antibiotics DC Garza Increase diet Problem Qualifiers (1) Sepsis: Jeramy Bartholomew MD Dec 17, 2016 13:13
[2016-12-17] MEDS ORDERED: ACETAMINOPHEN/HYDROcodone 325 MG/5 MG TAB PO PRN (13:15)
[2016-12-17] MEDS: ACETAMINOPHEN/HYDROcodone 325 MG/5 MG TAB PO PRN ×2 (13:47→21:11)
[2016-12-17 16:00] VITALS: BP 150/82; PULSE 98; RESP 17; TEMP 98.1; O2SAT 94
[2016-12-17] MEDS: HYDROmorphone HCL PF 1 MG/ML VIAL IV PRN (16:59)
[2016-12-17 20:00] VITALS: BP 135/72; PULSE 100; RESP 17; TEMP 98.2; O2SAT 95
[2016-12-17] MEDS: ENOXAPARIN SODIUM 30 MG/0.3 ML SYRINGE SQ SCH (23:42)
[2016-12-18] VITALS: BP_SYST 117; BP_SYST 164; BP_DIAS 73; BP_DIAS 86; PULSE 92; RESP 18; TEMP 97.9; O2SAT 96; O2SAT 97
[2016-12-18] MEDS: ALPRAZolam 0.5 MG TAB PO SCH ×8 (02:03→23:09)
[2016-12-18] MEDS: LEVOFLOXACIN 750 MG PREMIX INJ 150 ML IV SCH (02:03)
[2016-12-18] MEDS: HYDROmorphone HCL PF 1 MG/ML VIAL IV PRN ×4 (02:04→23:10)
[2016-12-18] MEDS: LEVOTHYROXINE SODIUM 75 MCG TAB PO SCH (05:35)
[2016-12-18] MEDS: PCA - TOTAL MG DILAUDID DELIVERED PER SHIFT OTHER SCH (05:37)
[2016-12-18 08:00] VITALS: BP 133/79; PULSE 92; RESP 20; TEMP 97.4; O2SAT 96
--- NOTE | 2016-12-18 08:01 | HHI.PR ---
Subjective Subjective Notes DAILY PROGRESS NOTE FOR SURGICAL ATTENDING, DR. JOLANTA MONTANEZ Patient feels comfortable By mouth medication almost adequate Still having some break through pain issues Objective Vitals/I&O Vital Signs Date Time Temp Pulse Resp B/P (MAP) Pulse Ox O2 Delivery O2 Flow Rate FiO2 12/18/16 00:00 97.9 92 18 117/73 (88) 96 12/16/16 16:28 Room Air 12/16/16 11:38 21 12/15/16 07:00 2.00 Labs Date/Time Source Procedure Growth Status 12/14/16 22:15 Blood Peripheral Aerobic Blood Culture - Preliminary NO GROWTH IN 3 DAYS Resulted 12/14/16 22:15 Blood Peripheral Anaerobic Blood Culture - Preliminary NO GROWTH IN 3 DAYS Resulted 12/14/16 18:51 Urine Clean Catch Urine Culture - Final Escherichia Coli Complete Radiology Last Impressions Abdomen/Pelvis CT 12/14/16 0000 Signed Impressions: Service Date/Time: November 21:21 - CONCLUSION: 1. Pneumoperitoneum. This is associated abnormal mural thickening of the distal left colon and proximal sigmoid colon as well as a partial obstruction. Differential diagnosis includes a ruptured diverticulitis or colonic perforation from focal colitis or neoplasm. 2. Small pericardial effusion. Trace free fluid in the abdomen. Jolanta tSeel MD Cardiovascular: Regular Lungs: Clear Abdomen: Non-distended, Post-op tenderness Extremities: No edema, Perfused Narrative Exam Ostomy pink perfused Dressing dry Garza out urinating okay A/P Problem List: (1) Status post Galina procedure ICD Codes: Z93.3 - Colostomy status Status: Acute (2) Status post colon resection ICD Codes: Z90.49 - Acquired absence of other specified parts of digestive tract Status: Acute (3) Colostomy care ICD Codes: Z43.3 - Encounter for attention to colostomy Status: Acute (4) Colostomy on examination ICD Codes: Z93.3 - Colostomy status Status: Acute (5) Acute abdomen ICD Codes: R10.0 - Acute abdomen Status: Acute (6) Pneumoperitoneum ICD Codes: K66.8 - Pneumoperitoneum Status: Acute (7) Sepsis ICD Codes: A41.9 - Sepsis Status: Acute (8) Dehydration ICD Codes: E86.0 - Dehydration Status: Resolved (9) Hypercalcemia ICD Codes: E83.52 - Hypercalcemia Status: Resolved (10) Chronic constipation ICD Codes: K59.09 - Other constipation Status: Chronic (11) History of chronic constipation ICD Codes: Z87.19 - Personal history of other diseases of the digestive system Status: Chronic (12) Chronic back pain greater than 3 months duration ICD Codes: M54.9 - Dorsalgia, unspecified; G89.29 - Other chronic pain Status: Chronic (13) Hypokalemia ICD Codes: E87.6 - Hypokalemia Status: Resolved (14) Chronic narcotic dependence ICD Codes: F11.20 - Opioid dependence, uncomplicated Status: Chronic Assessment and Plan 51-year-old female who has chronic constipation secondary to narcotic use for chronic back pain developed a sizable Sterkel ulcer. Underwent a distal transverse splenic flexure descending colon resection with colostomy and Grimaldo's Doing fairly well complaining of sore throat more than abdominal discomfort this time Today we'll try to mobilize Okay for some by mouth Adjust pain medication Continuing IV antibiotics DC Garza Increase diet Slow steady progress increase diet as tolerated Problem Qualifiers (1) Sepsis: [place],Jolanta D. MD Dec 18, 2016 08:00
[2016-12-18] MEDS: SODIUM CHLORIDE 0.9% FLUSH 10 ML FLUSH IV FLUSH SCH ×2 (09:00→20:02)
[2016-12-18] MEDS: REMOVE OLD PATCH T-DERMAL SCH (09:00)
[2016-12-18] MEDS: NICOTINE 14 MG/24 HR PATCH T-DERMAL SCH (09:00)
[2016-12-18] MEDS: ACETAMINOPHEN/HYDROcodone 325 MG/5 MG TAB PO PRN ×3 (09:05→21:54)
[2016-12-18 12:00] VITALS: BP 110/59; PULSE 64; RESP 18; TEMP 96.5; O2SAT 92
[2016-12-18] MEDS: PANTOPRAZOLE SOD 20 MG DELAYED RELEASE TAB PO SCH (12:27)
[2016-12-18] MEDS: DOCUSATE SODIUM 100 MG CAP PO SCH ×3 (12:27→18:24)
[2016-12-18] MEDS: LEVOFLOXACIN 500 MG TAB PO SCH (12:27)
--- NOTE | 2016-12-18 13:34 | PD.WCN.NOT ---
Wound Consult Description: Consult for NEW OSTOMY TEACHING per Dr Bartholomew Communicated with: Patient and Sal at bedside who was taking notes for the patient. Recommendation: Read booklet provided in the colostomy kit given Write down any question that you may have Practice attaching the barrier to the pouch given from the colostomy kit Additional Information: Patient seen on [address] [place] [address] for Ostomy teaching. Ostomy Type: Colostomy Surgeon: Jeramy Bartholomew MD Date of Surgery: Dec 15, 2016 Complete: Starter kit, Education materials Educated patient on: Patient was educated on terms that will be used during the teachings over the next few days. Patient was educated on wear time of the appliances, how to obtain appliances with no payer source, how to attach the pouch to the barrier, how to cleanse around the stoma, what foods may cause more gas than others. Additional information Stoma visualized on patient left abdomen. Stoma is measuring 2". Stoma is pink, round, edematous, dry, with minimal mucus noted coming from the lumen which is located in the center of the stoma. There is minimal clear pink liquid noted to the drainable pouch that patient demonstrated opening and closing. Verbal consent obtained for [facility] to send starter kit to patient home. Lluvia Dallas [facility] Dec 18, 2016 13:34
[2016-12-18 13:47] VITALS: O2SAT 96
[2016-12-18] MEDS: diphenhydrAMINE HCL 25 MG CAP PO PRN (15:22)
[2016-12-18 16:00] VITALS: BP 130/76; PULSE 95; RESP 20; TEMP 98.3; O2SAT 96
--- NOTE | 2016-12-18 16:30 | PD.WCN.NOT ---
Wound Consult Description: Consult for NEW OSTOMY TEACHING per Dr Bartholomew Recommendation: Read booklet provided in the colostomy kit given Write down any question that you may have Practice attaching the barrier to the pouch given from the colostomy kit Additional Information: Call placed to [facility] for starter kit to be delivered to patient home address Ostomy Type: Colostomy Surgeon: Jeramy Bartholomew MD Date of Surgery: Dec 15, 2016 Complete: Starter kit, Education materials Lluvia Dallas [facility] Dec 18, 2016 16:30
[2016-12-18 20:00] VITALS: BP 130/81; PULSE 95; RESP 17; TEMP 96.9; O2SAT 96
[2016-12-18] MEDS ORDERED: MECLIZINE HCL 25 MG TAB PO PRN (21:00)
[2016-12-18] MEDS: diphenhydrAMINE HCL 2%/ZINC ACETATE 0.1% CREAM 30 APPLIC/30 GM TUBE TOPICAL PRN (23:09)
[2016-12-18] MEDS: ENOXAPARIN SODIUM 30 MG/0.3 ML SYRINGE SQ SCH (23:10)
[2016-12-19] VITALS: BP 122/75; PULSE 95; RESP 17; TEMP 98; O2SAT 97
[2016-12-19] MEDS: HYDROmorphone HCL PF 1 MG/ML VIAL IV PRN ×7 (02:09→22:10)
[2016-12-19] MEDS: ALPRAZolam 0.5 MG TAB PO SCH ×8 (02:09→22:07)
[2016-12-19] MEDS: ACETAMINOPHEN/HYDROcodone 325 MG/5 MG TAB PO PRN ×4 (05:00→23:44)
[2016-12-19] MEDS: LEVOTHYROXINE SODIUM 75 MCG TAB PO SCH (05:00)
[2016-12-19 08:00] VITALS: BP 120/74; PULSE 92; RESP 16; TEMP 96.7; O2SAT 96
--- NOTE | 2016-12-19 08:02 | HHI.PR ---
Subjective Subjective Notes DAILY PROGRESS NOTE FOR SURGICAL ATTENDING, DR. JOLANTA BARTHOLOMEW Tolerating diet Tolerating by mouth pain medication No ostomy output Objective Vitals/I&O Vital Signs Date Time Temp Pulse Resp B/P (MAP) Pulse Ox O2 Delivery O2 Flow Rate FiO2 12/19/16 00:00 98.0 95 17 122/75 (91) 97 12/18/16 20:35 21 12/16/16 16:28 Room Air 12/15/16 07:00 2.00 Labs Date/Time Source Procedure Growth Status 12/14/16 22:15 Blood Peripheral Aerobic Blood Culture - Preliminary NO GROWTH IN 4 DAYS Resulted 12/14/16 22:15 Blood Peripheral Anaerobic Blood Culture - Preliminary NO GROWTH IN 4 DAYS Resulted 12/14/16 18:51 Urine Clean Catch Urine Culture - Final Escherichia Coli Complete Radiology Last Impressions Abdomen/Pelvis CT 12/14/16 0000 Signed Impressions: Service Date/Time: November 21:21 - CONCLUSION: 1. Pneumoperitoneum. This is associated abnormal mural thickening of the distal left colon and proximal sigmoid colon as well as a partial obstruction. Differential diagnosis includes a ruptured diverticulitis or colonic perforation from focal colitis or neoplasm. 2. Small pericardial effusion. Trace free fluid in the abdomen. Jolanta Steel MD Cardiovascular: Regular Lungs: Clear Abdomen: Post-op tenderness Narrative Exam Ostomy pink perfused Dressing dry urinating okay A/P Problem List: (1) Status post Galina procedure ICD Codes: Z93.3 - Colostomy status Status: Acute (2) Status post colon resection ICD Codes: Z90.49 - Acquired absence of other specified parts of digestive tract Status: Acute (3) Colostomy care ICD Codes: Z43.3 - Encounter for attention to colostomy Status: Acute (4) Colostomy on examination ICD Codes: Z93.3 - Colostomy status Status: Acute (5) Dehydration ICD Codes: E86.0 - Dehydration Status: Resolved (6) Chronic constipation ICD Codes: K59.09 - Other constipation Status: Chronic (7) History of chronic constipation ICD Codes: Z87.19 - Personal history of other diseases of the digestive system Status: Chronic (8) Chronic back pain greater than 3 months duration ICD Codes: M54.9 - Dorsalgia, unspecified; G89.29 - Other chronic pain Status: Chronic (9) Chronic narcotic dependence ICD Codes: F11.20 - Opioid dependence, uncomplicated Status: Chronic Assessment and Plan 51-year-old female who has chronic constipation secondary to narcotic use for chronic back pain developed a sizable Sterkel ulcer. Underwent a distal transverse splenic flexure descending colon resection with colostomy and Grimaldo's path - FINAL DIAGNOSIS: COLON, SPLENIC FLEXURE AND DESCENDING COLON, SEGMENTAL RESECTIONS X 2: LONGER COLONIC SEGMENT WITH FEATURES OF PERFORATION ASSOCIATED WITH MUCOSAL ULCERATION, TRANSMURAL ACUTE INFLAMMATION EXTENSIVE FIBRINOPURULENT SEROSITIS AND FIBROVASCULAR ADHESIONS (SEE COMMENT). - SHORTER COLONIC SEGMENT WITH MILD ACUTE COLITIS. - ONE BENIGN ELDER-COLONIC LYMPH NODE. Slow steady progress increase diet as tolerated DC planning for the next 48-72 hours Attending Statement NOTE FOR SURGICAL ATTENDING, DR. JOLANTA BARTHOLOMEW I attest that I had a [id number] encounter with the patient on the same day, and personally performed and documented my assessment and findings in the medical record. The following services were provided during this hospital visit: Chart data review, vital sign assessments/reviewing monitor data Review of consultations notes if present. Medication orders/review and/or management Ordering and/or reviewing lab tests Ordering and/or interpreting/reviewing x-rays and/or diagnostic studies Care of the patient and discussion of the patient with the care team Documentation time To help prompt me to consider important information that might be impacting today's encounter and assessment, information from prior notes written by myself or my colleagues may have been "brought forward/copy and pasted" into today's note. Jolanta Bartholomew MD Dec 19, 2016 08:02
[2016-12-19] MEDS: REMOVE OLD PATCH T-DERMAL SCH (09:00)
[2016-12-19] MEDS: DOCUSATE SODIUM 100 MG CAP PO SCH ×3 (09:40→17:14)
[2016-12-19] MEDS: NICOTINE 14 MG/24 HR PATCH T-DERMAL SCH (09:41)
[2016-12-19] MEDS: LEVOFLOXACIN 500 MG TAB PO SCH (09:41)
[2016-12-19] MEDS: PANTOPRAZOLE SOD 20 MG DELAYED RELEASE TAB PO SCH (09:41)
[2016-12-19] MEDS: SODIUM CHLORIDE 0.9% FLUSH 10 ML FLUSH IV FLUSH SCH ×2 (09:42→22:15)
[2016-12-19 12:00] VITALS: BP 127/75; PULSE 108; RESP 16; TEMP 97.3; O2SAT 98
--- NOTE | 2016-12-19 12:07 | PD.WCN.NOT ---
Wound Consult Description: Consult for NEW OSTOMY TEACHING per Dr Bartholomew Communicated with: Patient Recommendation: Read booklet provided in the colostomy kit given Write down any question that you may have Practice attaching the barrier to the pouch given from the colostomy kit Practice opening and closing the bottom of the pouch provided, for emptying purposes, until her closed ended pouches are obtained that she desires Additional Information: Patient seen on [address] [place] [address] from [phone] this am as scheduled for Ostomy teaching. Ostomy Type: Colostomy Surgeon: Jeramy Bartholomew MD Date of Surgery: Dec 15, 2016 Complete: Starter kit, Education materials Educated patient on: Skin care with ostomy appliance changes Inspecting the removed barrier for breakdown to assess for possible leakage problems Changing of the pouch/barrier Q5-7 days and PRN When to empty pouch 1/3-1/2 full Stoma size 2" with pouch size being 2 3/4" [facility] sent out kit to home address on 12/18/16 via [facility] Additional information Patient was seen on while ambulating in hallway for Ostomy teaching. Patient pouch removed once back in patient room for assessment and measurements. Stoma is pink, dry, round, edematous, mucus present around stoma with clear pink liquid noted to pouch, lumen in center of stoma measuring 2". Patient turned head while assessing stoma stating "That is so gross". Patient was active and participated in discussion and teaching, however will not look at stoma at this time. Patient demonstrates open and closing pouch on her appliance, however needs to practice with the supplies ordered for her to go home with that come with different pouching system. Patient was informed of tomorrow being the last day of her teaching. Lluvia Dallas [facility] Dec 19, 2016 12:07
[2016-12-19 16:00] VITALS: BP 147/86; PULSE 98; RESP 17; TEMP 96.7; O2SAT 98
[2016-12-19 20:00] VITALS: BP 139/85; PULSE 114; RESP 17; TEMP 98.6; O2SAT 99
[2016-12-19] MEDS: ENOXAPARIN SODIUM 30 MG/0.3 ML SYRINGE SQ SCH (23:43)
[2016-12-20] VITALS: BP 122/76; PULSE 102; RESP 17; TEMP 97.8; O2SAT 99
[2016-12-20] MEDS: diphenhydrAMINE HCL 25 MG CAP PO PRN ×2 (00:34→22:55)
[2016-12-20] MEDS: ALPRAZolam 0.5 MG TAB PO SCH ×8 (02:00→22:55)
[2016-12-20] MEDS: LEVOTHYROXINE SODIUM 75 MCG TAB PO SCH (05:36)
[2016-12-20] MEDS: HYDROmorphone HCL PF 1 MG/ML VIAL IV PRN ×6 (05:36→22:56)
[2016-12-20] MEDS: ACETAMINOPHEN/HYDROcodone 325 MG/5 MG TAB PO PRN ×3 (06:33→18:54)
[2016-12-20 06:39] LABS: HEMATOCRIT 24.5 % (35.0-46.0); MEAN CELL VOLUME 76.7 FL (80.0-100.0); MEAN CORPUSCULAR HEMOGLOBIN 24.8 PG (27.0-34.0); MEAN CORPUSCULAR HGB CONC 32.4 % (32.0-36.0); PLATELET COUNT 452 TH/MM3 (150-450); RED CELL DISTRIBUTION WIDTH 19.1 % (11.6-17.2); REVIEW FLAG FINAL; WHITE BLOOD COUNT 10.4 TH/MM3 (4.0-11.0)
[2016-12-20 07:08] LABS: BICARBONATE 27.5 MEQ/L (21.0-32.0); MAGNESIUM 1.8 MG/DL (1.5-2.5)
[2016-12-20 07:11] LABS: POTASSIUM 2.9 MEQ/L (3.5-5.1)
[2016-12-20 08:00] VITALS: BP 135/79; PULSE 97; RESP 17; TEMP 97.9; O2SAT 97
--- NOTE | 2016-12-20 08:38 | HHI.PR ---
Subjective Subjective Notes DAILY PROGRESS NOTE FOR SURGICAL ATTENDING, DR. JOLANTA BARTHOLOMEW Doing well Passing flatus through the ostomy Objective Vitals/I&O Vital Signs Date Time Temp Pulse Resp B/P (MAP) Pulse Ox O2 Delivery O2 Flow Rate FiO2 12/20/16 00:00 97.8 102 17 122/76 (91) 99 12/18/16 20:35 21 12/16/16 16:28 Room Air Labs Laboratory Tests Test 12/20/16 05:58 White Blood Count 10.4 Red Blood Count 3.20 Hemoglobin 7.9 Hematocrit 24.5 Mean Corpuscular Volume 76.7 Mean Corpuscular Hemoglobin 24.8 Mean Corpuscular Hemoglobin Concent 32.4 Red Cell Distribution Width 19.1 Platelet Count 452 Mean Platelet Volume 8.9 Blood Urea Nitrogen 6 Creatinine 0.95 Random Glucose 91 Calcium Level 8.3 Magnesium Level 1.8 Sodium Level 142 Potassium Level 2.9 Chloride Level 106 Carbon Dioxide Level 27.5 Anion Gap 9 Estimat Glomerular Filtration Rate 62 Date/Time Source Procedure Growth Status 12/14/16 22:15 Blood Peripheral Aerobic Blood Culture - Final NO GROWTH IN 5 DAYS Complete 12/14/16 22:15 Blood Peripheral Anaerobic Blood Culture - Final NO GROWTH IN 5 DAYS Complete 12/14/16 18:51 Urine Clean Catch Urine Culture - Final Escherichia Coli Complete Radiology Last Impressions Abdomen/Pelvis CT 12/14/16 0000 Signed Impressions: Service Date/Time: November 21:21 - CONCLUSION: 1. Pneumoperitoneum. This is associated abnormal mural thickening of the distal left colon and proximal sigmoid colon as well as a partial obstruction. Differential diagnosis includes a ruptured diverticulitis or colonic perforation from focal colitis or neoplasm. 2. Small pericardial effusion. Trace free fluid in the abdomen. Jolanta Steel MD Cardiovascular: Regular Lungs: Clear Abdomen: Post-op tenderness Narrative Exam Ostomy pink perfused Passing flatus Dressing dry urinating okay A/P Problem List: (1) Hypokalemia ICD Codes: E87.6 - Hypokalemia Status: Acute (2) Anemia ICD Codes: D64.9 - Anemia, unspecified (3) Status post Galina procedure ICD Codes: Z93.3 - Colostomy status Status: Acute (4) Status post colon resection ICD Codes: Z90.49 - Acquired absence of other specified parts of digestive tract Status: Acute (5) Colostomy care ICD Codes: Z43.3 - Encounter for attention to colostomy Status: Acute (6) Colostomy on examination ICD Codes: Z93.3 - Colostomy status Status: Acute (7) Chronic constipation ICD Codes: K59.09 - Other constipation Status: Chronic (8) History of chronic constipation ICD Codes: Z87.19 - Personal history of other diseases of the digestive system Status: Chronic (9) Chronic back pain greater than 3 months duration ICD Codes: M54.9 - Dorsalgia, unspecified; G89.29 - Other chronic pain Status: Chronic (10) Chronic narcotic dependence ICD Codes: F11.20 - Opioid dependence, uncomplicated Status: Chronic Assessment and Plan 51-year-old female who has chronic constipation secondary to narcotic use for chronic back pain developed a sizable Sterkel ulcer. Underwent a distal transverse splenic flexure descending colon resection with colostomy and Grimaldo's path - FINAL DIAGNOSIS: COLON, SPLENIC FLEXURE AND DESCENDING COLON, SEGMENTAL RESECTIONS X 2: LONGER COLONIC SEGMENT WITH FEATURES OF PERFORATION ASSOCIATED WITH MUCOSAL ULCERATION, TRANSMURAL ACUTE INFLAMMATION EXTENSIVE FIBRINOPURULENT SEROSITIS AND FIBROVASCULAR ADHESIONS (SEE COMMENT). - SHORTER COLONIC SEGMENT WITH MILD ACUTE COLITIS. - ONE BENIGN ELDER-COLONIC LYMPH NODE. Potassium low Will replace Mild anemia will start iron supplementation Slow steady progress increase diet as tolerated DC planning for tomorrow Jolanta Bartholomew MD Dec 20, 2016 08:38
[2016-12-20] MEDS ORDERED: POTASSIUM CHLORIDE 20 MEQ CONTROLLED RELEASE TAB PO ONE (08:45)
[2016-12-20] MEDS: PANTOPRAZOLE SOD 20 MG DELAYED RELEASE TAB PO SCH (08:47)
[2016-12-20] MEDS: LEVOFLOXACIN 500 MG TAB PO SCH (08:47)
[2016-12-20] MEDS: NICOTINE 14 MG/24 HR PATCH T-DERMAL SCH (08:48)
[2016-12-20] MEDS: DOCUSATE SODIUM 100 MG CAP PO SCH ×3 (08:49→18:54)
[2016-12-20] MEDS: diphenhydrAMINE HCL 2%/ZINC ACETATE 0.1% CREAM 30 APPLIC/30 GM TUBE TOPICAL PRN (08:50)
[2016-12-20] MEDS: REMOVE OLD PATCH T-DERMAL SCH (09:00)
[2016-12-20] MEDS ORDERED: POTASSIUM PHOSPHATE INJ 30 MMOL in SODIUM CHLOR 0.9% 250 ML INJ 250 ML IV ONE (09:00)
[2016-12-20] MEDS: SODIUM CHLORIDE 0.9% FLUSH 10 ML FLUSH IV FLUSH SCH ×2 (09:02→19:58)
[2016-12-20 12:00] VITALS: BP 147/91; PULSE 104; RESP 18; TEMP 97.9; O2SAT 99
--- NOTE | 2016-12-20 12:46 | PD.WCN.NOT ---
Wound Consult Description: Consult for NEW OSTOMY TEACHING per Dr Bartholomew Communicated with: Patient Recommendation: Read booklet provided in the colostomy kit given Write down any question that you may have Practice opening, emptying, and closing the bottom of the new applied pouch Change appliance every 5-7 days and PRN Additional Information: Patient seen on [address] [place] [address] from [id number] for Ostomy teaching and appliance change with 2 3/4" supplies. Ostomy Type: Colostomy Surgeon: Jeramy Bartholomew MD Date of Surgery: Dec 15, 2016 Complete: Starter kit, Education materials, Other (Patient removed appliance, cleansed her peristomal skin, and applied new appliance with minimal assistance) Educated patient on: Patient was educated on emptying pouch, removing barrier from abdomen using adhesive removal wipes, cleansing peristomal skin, measuring stoma, molding barrier to fit her stoma size, and applying the new barrier and pouch. We discussed wear time, emptying effluent, how to obtain supplies after discharge, and basic stoma care. Additional information Patient seen on for Ostomy teaching. Patient was shown her supplies that had been ordered and brought to her room. Patient took out the barrier and pouch from their packages, practiced molding the barrier and applying it to the practice stoma, and attaching the pouch to the barrier/flange. We discussed taking off her appliance and agreed to do that at this time. Patient used adhesive removal wipes to loosen and remove barrier from abdomen. The back of the barrier was inspected for breakdown of appliance and noted to be breaking down circumferentially and evenly which is expected with a correctly fitting pouching system. Patient became very emotional about her stoma saying that when her had his she could not even look at it. The patient was encouraged to look at her stoma for sizing and assessment of peristomal skin for irritation. Patients stoma is noted to be shaped like a mushroom cap measuring 2" at the top and measured 1 1/2" at the mucocutaneous junction which had 1 suture noted @ 10 o'clock. The stoma is pink, round, edematous, smooth, moderately protruding, dry, with minimal sticky clear yellow colored mucous noted on stoma, lumen is noted in the center, and there was ~20ml clear pink liquid noted to removed pouch. Patient closed the end of the pouch and laid it aside, and molded the barrier to fit over her stoma and applied the barrier independently. Once the appliance was on, the barrier was inspected and patient was given the go ahead to attach the pouch to the flange and then placed her hand over the appliance and stoma for warmth and to help secure the appliance for 2 minutes. Supplies were ordered and in patients room for her to go home with. [facility] was called and her starter kit is on its way. Patient states feeling more educated however states that she still does not want to have to take care of it. It was explained to her that she needs to know the basics of the appliance, how to empty, remove, and replace just in case there is no one there to help her if the appliance needs to be changed. Patient was educated on the appliance needing to be changed every 5-7 days and emptied at bedtime and PRN throughout the day. Information was given on supplies that could be obtained once patient is discharged. Lluvia [place] [facility] Dec 20, 2016 12:46
[2016-12-20 16:00] VITALS: BP 152/89; PULSE 104; RESP 18; TEMP 97.5; O2SAT 99
[2016-12-20 20:00] VITALS: BP 128/89; PULSE 80; RESP 18; TEMP 98; O2SAT 97
[2016-12-20] MEDS: ENOXAPARIN SODIUM 30 MG/0.3 ML SYRINGE SQ SCH (22:56)
[2016-12-21] VITALS (7 sets, daily range): BP systolic 127–149; BP diastolic 80–95; PULSE 90–116; RESP 12–18; TEMP 96.5–97.5; O2SAT 95–99
[2016-12-21] MEDS: ACETAMINOPHEN/HYDROcodone 325 MG/5 MG TAB PO PRN ×4 (01:22→20:37)
[2016-12-21] MEDS: ALPRAZolam 0.5 MG TAB PO SCH ×8 (01:22→23:09)
[2016-12-21] MEDS: HYDROmorphone HCL PF 1 MG/ML VIAL IV PRN ×6 (02:24→22:17)
[2016-12-21] MEDS: LEVOTHYROXINE SODIUM 75 MCG TAB PO SCH (05:24)
[2016-12-21] MEDS: NICOTINE 14 MG/24 HR PATCH T-DERMAL SCH (07:42)
[2016-12-21] MEDS: DOCUSATE SODIUM 100 MG CAP PO SCH ×3 (07:42→17:24)
[2016-12-21] MEDS: LEVOFLOXACIN 500 MG TAB PO SCH (07:52)
[2016-12-21] MEDS: PANTOPRAZOLE SOD 20 MG DELAYED RELEASE TAB PO SCH (07:52)
[2016-12-21] MEDS: REMOVE OLD PATCH T-DERMAL SCH (08:00)
--- NOTE | 2016-12-21 08:00 | HHI.PR ---
Subjective Subjective Notes DAILY PROGRESS NOTE FOR SURGICAL ATTENDING, DR. JOLANTA BRATHOLOMEW Still uncomfortable colostomy No BM Objective Vitals/I&O Vital Signs Date Time Temp Pulse Resp B/P (MAP) Pulse Ox O2 Delivery O2 Flow Rate FiO2 12/21/16 00:41 96.8 90 18 140/80 (100) 97 12/18/16 20:35 21 Labs Date/Time Source Procedure Growth Status 12/14/16 22:15 Blood Peripheral Aerobic Blood Culture - Final NO GROWTH IN 5 DAYS Complete 12/14/16 22:15 Blood Peripheral Anaerobic Blood Culture - Final NO GROWTH IN 5 DAYS Complete 12/14/16 18:51 Urine Clean Catch Urine Culture - Final Escherichia Coli Complete Radiology Last Impressions Abdomen/Pelvis CT 12/14/16 0000 Signed Impressions: Service Date/Time: November 21:21 - CONCLUSION: 1. Pneumoperitoneum. This is associated abnormal mural thickening of the distal left colon and proximal sigmoid colon as well as a partial obstruction. Differential diagnosis includes a ruptured diverticulitis or colonic perforation from focal colitis or neoplasm. 2. Small pericardial effusion. Trace free fluid in the abdomen. Jolanta Steel MD Cardiovascular: Regular Lungs: Clear Abdomen: Post-op tenderness Extremities: Perfused Narrative Exam Ostomy pink perfused Passing flatus Dressing dry urinating okay A/P Problem List: (1) Hypokalemia ICD Codes: E87.6 - Hypokalemia Status: Acute (2) Anemia ICD Codes: D64.9 - Anemia, unspecified (3) Status post [place] procedure ICD Codes: Z93.3 - Colostomy status Status: Acute (4) Status post colon resection ICD Codes: Z90.49 - Acquired absence of other specified parts of digestive tract Status: Acute (5) Colostomy care ICD Codes: Z43.3 - Encounter for attention to colostomy Status: Acute (6) Colostomy on examination ICD Codes: Z93.3 - Colostomy status Status: Acute (7) Chronic constipation ICD Codes: K59.09 - Other constipation Status: Chronic (8) History of chronic constipation ICD Codes: Z87.19 - Personal history of other diseases of the digestive system Status: Chronic (9) Chronic back pain greater than 3 months duration ICD Codes: M54.9 - Dorsalgia, unspecified; G89.29 - Other chronic pain Status: Chronic (10) Chronic narcotic dependence ICD Codes: F11.20 - Opioid dependence, uncomplicated Status: Chronic Assessment and Plan 51-year-old female who has chronic constipation secondary to narcotic use for chronic back pain developed a sizable Sterkel ulcer. Underwent a distal transverse splenic flexure descending colon resection with colostomy and Grimaldo's path - FINAL DIAGNOSIS: COLON, SPLENIC FLEXURE AND DESCENDING COLON, SEGMENTAL RESECTIONS X 2: LONGER COLONIC SEGMENT WITH FEATURES OF PERFORATION ASSOCIATED WITH MUCOSAL ULCERATION, TRANSMURAL ACUTE INFLAMMATION EXTENSIVE FIBRINOPURULENT SEROSITIS AND FIBROVASCULAR ADHESIONS (SEE COMMENT). - SHORTER COLONIC SEGMENT WITH MILD ACUTE COLITIS. - ONE BENIGN ELDER-COLONIC LYMPH NODE. Potassium recheck replace if low Mild anemia will start iron supplementation Slow steady progress increase diet as tolerated DC planning for Sunday Problem Qualifiers (1) Anemia: Qualified Codes: D63.8 - Anemia in other chronic diseases classified elsewhere Jolanta Bartholomew MD Dec 21, 2016 08:00
[2016-12-21] MEDS: SODIUM CHLORIDE 0.9% FLUSH 10 ML FLUSH IV FLUSH SCH ×2 (08:02→20:44)
[2016-12-21] MEDS: ASCORBIC ACID 500 MG TAB PO SCH (08:03)
[2016-12-21] MEDS ORDERED: HYDR-3516 PO (08:05)
[2016-12-21] MEDS ORDERED: DOCU1CAP39 PO (08:05)
[2016-12-21] MEDS ORDERED: PANT20 PO (08:05)
[2016-12-21] MEDS ORDERED: VITA500T2 PO (08:05)
[2016-12-21] MEDS: diphenhydrAMINE HCL 2%/ZINC ACETATE 0.1% CREAM 30 APPLIC/30 GM TUBE TOPICAL PRN (10:12)
[2016-12-21] MEDS ORDERED: POTASSIUM CHLORIDE 10 MEQ CONTROLLED RELEASE TAB PO ONE (16:45)
[2016-12-21] MEDS ORDERED: POTASSIUM CHLORIDE 20 MEQ CONTROLLED RELEASE TAB PO ONE (17:00)
[2016-12-21] MEDS ORDERED: POTASSIUM CHLOR 20 MEQ PREMIX 100 ML IV ONE (17:00)
[2016-12-21] MEDS: diphenhydrAMINE HCL 25 MG CAP PO PRN (20:37)
[2016-12-21] MEDS: ENOXAPARIN SODIUM 30 MG/0.3 ML SYRINGE SQ SCH (23:09)
[2016-12-22] VITALS (8 sets, daily range): BP systolic 127–160; BP diastolic 75–92; PULSE 69–111; RESP 14–20; TEMP 96.8–98.9; O2SAT 95–98
[2016-12-22] MEDS: HYDROmorphone HCL PF 1 MG/ML VIAL IV PRN ×7 (01:25→22:59)
[2016-12-22] MEDS: ALPRAZolam 0.5 MG TAB PO SCH ×8 (02:41→22:58)
[2016-12-22] MEDS: ACETAMINOPHEN/HYDROcodone 325 MG/5 MG TAB PO PRN ×4 (02:42→21:48)
[2016-12-22] MEDS: LEVOTHYROXINE SODIUM 75 MCG TAB PO SCH (05:11)
[2016-12-22] MEDS: diphenhydrAMINE HCL 25 MG CAP PO PRN ×2 (05:38→18:22)
[2016-12-22 06:32] LABS: BICARBONATE 25.5 MEQ/L (21.0-32.0); POTASSIUM 3.4 MEQ/L (3.5-5.1)
[2016-12-22 06:59] LABS: CALCIUM-PROTEIN CORRECTED 8.2 MG/DL (8.5-10.1)
[2016-12-22] MEDS ORDERED: POTASSIUM PHOSPHATE MONOBASIC 500 MG TAB PO ONE (07:30)
[2016-12-22] MEDS: LEVOFLOXACIN 500 MG TAB PO SCH (08:09)
[2016-12-22] MEDS: NICOTINE 14 MG/24 HR PATCH T-DERMAL SCH (08:10)
[2016-12-22] MEDS: PANTOPRAZOLE SOD 20 MG DELAYED RELEASE TAB PO SCH (08:10)
[2016-12-22] MEDS: ASCORBIC ACID 500 MG TAB PO SCH (08:10)
[2016-12-22] MEDS: REMOVE OLD PATCH T-DERMAL SCH (08:10)
--- NOTE | 2016-12-22 09:06 | HHI.PR ---
Subjective Subjective Notes DAILY PROGRESS NOTE FOR SURGICAL ATTENDING, DR. JOLATNA BARTHOLOMEW Walking halls Getting potassium replacement today Objective Vitals/I&O Vital Signs Date Time Temp Pulse Resp B/P (MAP) Pulse Ox O2 Delivery O2 Flow Rate FiO2 12/22/16 08:20 97.6 92 14 138/90 (106) 12/22/16 00:00 96 12/18/16 20:35 21 Labs Laboratory Tests Test 12/21/16 15:28 12/22/16 04:58 Potassium Level 3.3 3.4 Blood Urea Nitrogen 7 Creatinine 0.82 Random Glucose 83 Total Protein 5.6 Calcium Level 7.4 Sodium Level 140 Chloride Level 107 Carbon Dioxide Level 25.5 Anion Gap 8 Estimat Glomerular Filtration Rate 74 Protein Corrected Calcium 8.2 Date/Time Source Procedure Growth Status 12/14/16 22:15 Blood Peripheral Aerobic Blood Culture - Final NO GROWTH IN 5 DAYS Complete 12/14/16 22:15 Blood Peripheral Anaerobic Blood Culture - Final NO GROWTH IN 5 DAYS Complete 12/14/16 18:51 Urine Clean Catch Urine Culture - Final Escherichia Coli Complete Radiology Last Impressions Abdomen/Pelvis CT 12/14/16 0000 Signed Impressions: Service Date/Time: November 21:21 - CONCLUSION: 1. Pneumoperitoneum. This is associated abnormal mural thickening of the distal left colon and proximal sigmoid colon as well as a partial obstruction. Differential diagnosis includes a ruptured diverticulitis or colonic perforation from focal colitis or neoplasm. 2. Small pericardial effusion. Trace free fluid in the abdomen. Jolanta Steel MD Cardiovascular: Regular Lungs: Clear Abdomen: Other Extremities: Perfused Narrative Exam Ostomy pink perfused Passing flatus Dressing dry Locking holes urinating okay A/P Problem List: (1) Hypokalemia ICD Codes: E87.6 - Hypokalemia Status: Acute (2) Anemia ICD Codes: D64.9 - Anemia, unspecified (3) Status post [place] procedure ICD Codes: Z93.3 - Colostomy status Status: Acute (4) Status post colon resection ICD Codes: Z90.49 - Acquired absence of other specified parts of digestive tract Status: Acute (5) Colostomy care ICD Codes: Z43.3 - Encounter for attention to colostomy Status: Acute (6) Colostomy on examination ICD Codes: Z93.3 - Colostomy status Status: Acute (7) Chronic constipation ICD Codes: K59.09 - Other constipation Status: Chronic (8) History of chronic constipation ICD Codes: Z87.19 - Personal history of other diseases of the digestive system Status: Chronic (9) Chronic back pain greater than 3 months duration ICD Codes: M54.9 - Dorsalgia, unspecified; G89.29 - Other chronic pain Status: Chronic (10) Chronic narcotic dependence ICD Codes: F11.20 - Opioid dependence, uncomplicated Status: Chronic Assessment and Plan 51-year-old female who has chronic constipation secondary to narcotic use for chronic back pain developed a sizable Sterkel ulcer. Underwent a distal transverse splenic flexure descending colon resection with colostomy and Grimaldo's path - FINAL DIAGNOSIS: COLON, SPLENIC FLEXURE AND DESCENDING COLON, SEGMENTAL RESECTIONS X 2: LONGER COLONIC SEGMENT WITH FEATURES OF PERFORATION ASSOCIATED WITH MUCOSAL ULCERATION, TRANSMURAL ACUTE INFLAMMATION EXTENSIVE FIBRINOPURULENT SEROSITIS AND FIBROVASCULAR ADHESIONS (SEE COMMENT). - SHORTER COLONIC SEGMENT WITH MILD ACUTE COLITIS. - ONE BENIGN ELDER-COLONIC LYMPH NODE. Potassium recheck replace if low Mild anemia will start iron supplementation Slow steady progress increase diet as tolerated DC planning for Sunday Discharge Planning Home health set up Ostomy supplies for home health Will need outpatient referral for colonoscopy. Attending Statement NOTE FOR SURGICAL ATTENDING, DR. JOLANTA BARTHOLOMEW I attest that I had a [id number] encounter with the patient on the same day, and personally performed and documented my assessment and findings in the medical record. The following services were provided during this hospital visit: Chart data review, vital sign assessments/reviewing monitor data Review of consultations notes if present. Medication orders/review and/or management Ordering and/or reviewing lab tests Ordering and/or interpreting/reviewing x-rays and/or diagnostic studies Care of the patient and discussion of the patient with the care team Documentation time To help prompt me to consider important information that might be impacting today's encounter and assessment, information from prior notes written by myself or my colleagues may have been "brought forward/copy and pasted" into today's note. Problem Qualifiers (1) Anemia: Qualified Codes: D63.8 - Anemia in other chronic diseases classified elsewhere Jolanta Bartholomew MD Dec 22, 2016 09:06
[2016-12-22] MEDS ORDERED: THERH PO (09:08)
[2016-12-22] MEDS: DOCUSATE SODIUM 100 MG CAP PO SCH ×3 (12:01→16:20)
[2016-12-22] MEDS: SODIUM CHLORIDE 0.9% FLUSH 10 ML FLUSH IV FLUSH SCH ×2 (12:35→19:59)
[2016-12-22] MEDS: ENOXAPARIN SODIUM 30 MG/0.3 ML SYRINGE SQ SCH (22:58)
[2016-12-23] VITALS: BP 141/92; PULSE 69; RESP 18; TEMP 97.2; O2SAT 98
[2016-12-23] MEDS: diphenhydrAMINE HCL 25 MG CAP PO PRN (01:13)
[2016-12-23] MEDS: ALPRAZolam 0.5 MG TAB PO SCH ×4 (02:07→10:10)
[2016-12-23] MEDS: HYDROmorphone HCL PF 1 MG/ML VIAL IV PRN ×3 (02:08→08:48)
[2016-12-23] MEDS: ACETAMINOPHEN/HYDROcodone 325 MG/5 MG TAB PO PRN ×2 (04:00→10:10)
[2016-12-23] MEDS: LEVOTHYROXINE SODIUM 75 MCG TAB PO SCH (05:13)
[2016-12-23 08:00] VITALS: BP 148/84; PULSE 93; RESP 19; TEMP 96.9; O2SAT 99
[2016-12-23] MEDS: REMOVE OLD PATCH T-DERMAL SCH (08:49)
[2016-12-23] MEDS: PANTOPRAZOLE SOD 20 MG DELAYED RELEASE TAB PO SCH (08:49)
[2016-12-23] MEDS: ASCORBIC ACID 500 MG TAB PO SCH (08:49)
[2016-12-23] MEDS: LEVOFLOXACIN 500 MG TAB PO SCH (08:49)
[2016-12-23] MEDS: DOCUSATE SODIUM 100 MG CAP PO SCH (08:49)
[2016-12-23] MEDS: NICOTINE 14 MG/24 HR PATCH T-DERMAL SCH (08:49)
[2016-12-23] MEDS: SODIUM CHLORIDE 0.9% FLUSH 10 ML FLUSH IV FLUSH SCH (08:50)
--- NOTE | 2016-12-23 10:21 | HHI.PR ---
Subjective Subjective Notes feels fine, wants to go home Objective Vitals/I&O Vital Signs Date Time Temp Pulse Resp B/P (MAP) Pulse Ox O2 Delivery O2 Flow Rate FiO2 12/23/16 00:00 97.2 69 18 141/92 (108) 98 Labs Date/Time Source Procedure Growth Status 12/14/16 22:15 Blood Peripheral Aerobic Blood Culture - Final NO GROWTH IN 5 DAYS Complete 12/14/16 22:15 Blood Peripheral Anaerobic Blood Culture - Final NO GROWTH IN 5 DAYS Complete 12/14/16 18:51 Urine Clean Catch Urine Culture - Final Escherichia Coli Complete Radiology Last Impressions Abdomen/Pelvis CT 12/14/16 0000 Signed Impressions: Service Date/Time: November 21:21 - CONCLUSION: 1. Pneumoperitoneum. This is associated abnormal mural thickening of the distal left colon and proximal sigmoid colon as well as a partial obstruction. Differential diagnosis includes a ruptured diverticulitis or colonic perforation from focal colitis or neoplasm. 2. Small pericardial effusion. Trace free fluid in the abdomen. Jeramy Steel MD Cardiovascular: Regular Lungs: Clear Abdomen: Non-distended, Post-op tenderness, BS normal Wound Wound : Wound Location: Abdomen Appearance: Clean & Dry Dressing: Dry A/P Problem List: (1) Hypokalemia ICD Codes: E87.6 - Hypokalemia Status: Acute (2) Anemia ICD Codes: D64.9 - Anemia, unspecified (3) Status post [place] procedure ICD Codes: Z93.3 - Colostomy status Status: Acute (4) Status post colon resection ICD Codes: Z90.49 - Acquired absence of other specified parts of digestive tract Status: Acute (5) Colostomy care ICD Codes: Z43.3 - Encounter for attention to colostomy Status: Acute (6) Colostomy on examination ICD Codes: Z93.3 - Colostomy status Status: Acute (7) Chronic constipation ICD Codes: K59.09 - Other constipation Status: Chronic (8) History of chronic constipation ICD Codes: Z87.19 - Personal history of other diseases of the digestive system Status: Chronic (9) Chronic back pain greater than 3 months duration ICD Codes: M54.9 - Dorsalgia, unspecified; G89.29 - Other chronic pain Status: Chronic (10) Chronic narcotic dependence ICD Codes: F11.20 - Opioid dependence, uncomplicated Status: Chronic Assessment and Plan s/p colostomy dc home fu this week Problem Qualifiers (1) Anemia: Qualified Codes: D63.8 - Anemia in other chronic diseases classified elsewhere Isaiah Jones MD Dec 23, 2016 10:21
--- NOTE | 2016-12-23 10:36 | HHI.FF ---
Face to Face Verification Diagnosis: (1) Status post colon resection (2) Status post Gal[place] procedure (3) Colostomy on examination (4) Chronic constipation (5) Pneumoperitoneum (6) Sepsis Home Health Nursing Order: Medical education Signs/symptoms of disease process Wound care and dressing changes Nursing assessment with vital signs Instructions: ostomy care I have seen patient Rekha Wagner on 12/23/16. My clinical findings support the need for the requested home health care services because: Ltd mobility - disease progression Deconditioned w/ increased weakness Limited ability to care for self I certify that my clinical findings support that this patient is homebound because: Post-op weakness Unsafe to leave home unassisted Isaiah Jones MD Dec 23, 2016 10:36
--- NOTE | 2017-01-30 10:44 | HHI.DS ---
Discharge Summary Admission Date Dec 14, 2016 at 21:58 Discharge Date: Dec 23, 2016 Admitting Diagnosis pneumoperitoneum, sepsis (1) Hypokalemia ICD Codes: E87.6 - Hypokalemia Status: Acute (2) Anemia ICD Codes: D64.9 - Anemia, unspecified (3) Status post [place] procedure ICD Codes: Z93.3 - Colostomy status Status: Acute (4) Status post colon resection ICD Codes: Z90.49 - Acquired absence of other specified parts of digestive tract Status: Acute (5) Colostomy care ICD Codes: Z43.3 - Encounter for attention to colostomy Status: Acute (6) Colostomy on examination ICD Codes: Z93.3 - Colostomy status Status: Acute (7) Chronic constipation ICD Codes: K59.09 - Other constipation Status: Chronic (8) History of chronic constipation ICD Codes: Z87.19 - Personal history of other diseases of the digestive system Status: Chronic (9) Chronic back pain greater than 3 months duration ICD Codes: M54.9 - Dorsalgia, unspecified; G89.29 - Other chronic pain Status: Chronic (10) Chronic narcotic dependence ICD Codes: F11.20 - Opioid dependence, uncomplicated Status: Chronic Brief History 51-year-old female who has chronic constipation secondary to narcotic use for chronic back pain developed a sizable Sterkel ulcer. Underwent a distal transverse splenic flexure descending colon resection with colostomy and Grimaldo's procedure PE at Discharge Alert and awake Cardio: RRR Respiratory: CTAB Ostomy pink perfused Passing flatus Dressing dry Hospital Course This is a 51-year-old female who has chronic constipation secondary to narcotic use for chronic back pain who developed a sizable Sterkel ulcer. She had an emergency descending colon resection with colostomy and Grimaldo's procedure. The patient's diet was advanced as tolerated. The patient's pain was controlled using oral pain medications. The patient was instructed on how to care for her colostomy. Home healthcare was arranged for the patient. The patient will follow-up with Dr. Bartholomew in the office as indicated on the discharge information. Pt Condition on Discharge: Good Discharge Disposition: Discharge Home Discharge Instructions DIET: Follow Instructions for: As Tolerated, No Restrictions Activities you can perform: Regular-No Restrictions Alla Crouch Jan 30, 2017 10:44
== END 2016-12-23 11:14 | disposition home or self-care (01) | DRG 853 ==
LOC: NEPD 17:00 → NEDA 21:58 → N03B 12-15 02:41 → N07A 12-16 16:08
PROVIDERS: ADMIT Surgery; ATTEND Surgery
PROC: 0DBM0ZZ Excision of Descending Colon, Open Approach (ICD-10-PCS; principal; 2016-12-15)
PROC: 0DBL0ZZ Excision of Transverse Colon, Open Approach (ICD-10-PCS; 2016-12-15)
PROC: 0D1L0Z4 Bypass Transverse Colon to Cutaneous, Open Approach (ICD-10-PCS; 2016-12-15)
DX: A41.9 Sepsis, unspecified organism (principal); K63.1 Perforation of intestine (nontraumatic); F11.20 Opioid dependence, uncomplicated; E83.52 Hypercalcemia; E89.0 Postprocedural hypothyroidism; F17.210 Nicotine dependence, cigarettes, uncomplicated; F41.9 Anxiety disorder, unspecified; G89.29 Other chronic pain; M54.2 Cervicalgia; E86.0 Dehydration; E87.6 Hypokalemia; D63.8 Anemia in other chronic diseases classified elsewhere; K52.9 Noninfective gastroenteritis and colitis, unspecified; K56.41 Fecal impaction; T40.605A Adverse effect of unspecified narcotics, initial encounter; Z85.828 Personal history of other malignant neoplasm of skin; Z85.850 Personal history of malignant neoplasm of thyroid
CPT/HCPCS: 74176; 80048; 80053; 81001; 82310; 82550; 82805; 83605; 83690; 83735; 84100; 84132; 84155; 84484; 84702; 85025; 85027; 85610; 85730; 86850; 86900; 86901; 87040; 87077; 87086; 87186; 87641; 88307; 93005; 94150; 96361; 96374; 96375; C9113; J0131; J0690; J1170; J1450; J1650; J1956; J2270; J2370; J2405; J2543; J3010; J3480; J7030; J7050; J7120